=== PATIENT | female | born 2000 | race African-American/Black ===

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

== ENCOUNTER 2022-09-13 06:00 | Emergency (ER) | payer SELFPAY ==
[2022-09-13 06:22] VITALS: BMI 47.9
[2022-09-13] MEDS ORDERED: DEXAMETHASONE SOD PHOSPHATE 10 MG/1 ML VIAL IM ONE (08:02)
[2022-09-13] MEDS ORDERED: DEXAMETHASONE SOD PHOSPHATE 10 MG/1 ML VIAL IVPUSH ONE (08:11)
[2022-09-13] MEDS ORDERED: ACETAMINOPHEN 1000 MG/100 ML BAG IVPB ONE (08:11)
[2022-09-13] MEDS ORDERED: SODIUM CHLORIDE 0.9% 500 ML INFUS.BAG IV ONE (08:11)
[2022-09-13] MEDS ORDERED: DEXAMETHASONE SOD PHOSPHATE 10 MG/1 ML VIAL ONE (08:21)
[2022-09-13] MEDS ORDERED: ACETAMINOPHEN INJECTION 100 ML IVPB ONE (08:21)
[2022-09-13 09:15] LABS: BASO % 0.7 % (0-2.0); EOS % 3.2 % (0-4.5); HEMOGLOBIN 11.9 GM/dL (10.7-15.3); LYMPH % 31.2 % (8-40); MCH 23.5 pg (25.7-33.7); MCHC 31.3 g/dl (32.0-36.0); MEAN CELL VOLUME 75.1 fl (80-96); MEAN PLT VOLUME 8.1 fl (7.5-11.1); MONO % 6.3 % (3.8-10.2); NEUT % 58.6 % (42.8-82.8); PLATELET COUNT 481 10^3/uL (134-434); RBC 5.05 M/mm3 (3.60-5.2); RDW 16.3 % (11.6-15.6); WHITE BLOOD COUNT 9.3 K/mm3 (4.0-10.0)
[2022-09-13 09:42] LABS: ALBUMIN 3.8 g/dl (3.4-5.0); BLOOD UREA NITROGEN 11.2 mg/dL (7-18); CALCIUM 9.3 mg/dL (8.5-10.1)
[2022-09-13 09:45] LABS: CREATININE 0.7 mg/dL (0.55-1.3)
[2022-09-13 09:47] LABS: BILIRUBIN,TOTAL 0.5 mg/dL (0.2-1)
[2022-09-13] MEDS ORDERED: MAG HYDROX/AL HYDROX/SIMETH -MYLANTA- ORAL SUSPENSION PO ONE (10:23)
[2022-09-13] MEDS ORDERED: MAG HYDROX/AL HYDROX/SIMETH 30 ML UNIT-DOSE CUP ONE (10:55)
[2022-09-13] MEDS ORDERED: AMOXICILLIN 500 MG CAPSULE (FP) PO ONE (11:50)
[2022-09-13] MEDS ORDERED: DOXYCYCLINE HYCLATE 100 MG CAPSULE PO ONE ×2 (11:50→12:06)
[2022-09-13] MEDS ORDERED: CEFTRIAXONE 1 GM in DEXTROSE 5%-WATER - 100 ML IVPB ONE (11:50)
[2022-09-13] MEDS ORDERED: AMOXICILLIN 500 MG CAPSULE (FP) ONE (12:07)
[2022-09-13] MEDS ORDERED: CEFTRIAXONE 1 GM/50 ML BAG ONE (12:07)
[2022-09-13] MEDS ORDERED: KETOROLAC TROMETHAMINE 15 MG/ML VIAL IVPUSH ONE (12:13)
[2022-09-13 13:11] VITALS: BP 150/95; PULSE 80; RESP 100; TEMP 98.9
== END 2022-09-13 13:10 | disposition home or self-care (01) ==
LOC: JER 06:00
PROC: 3E0333Z Introduction of Anti-inflammatory into Peripheral Vein, Percutaneous Approach (ICD-10-PCS; principal; 2022-09-13)
PROC: 3E03329 Introduction of Other Anti-infective into Peripheral Vein, Percutaneous Approach (ICD-10-PCS; 2022-09-13)
PROC: 3E0333Z Introduction of Anti-inflammatory into Peripheral Vein, Percutaneous Approach (ICD-10-PCS; 2022-09-13)
DX: J02.9 Acute pharyngitis, unspecified (principal)
CPT/HCPCS: 0241U-QW; 36415; 70491-TC; 80053; 84703; 85025; 87070; 87651; 99285-25; J1100

== ENCOUNTER 2023-05-20 14:37 | Emergency (ER) | payer OTHER ==
[2023-05-20 14:44] VITALS: BMI 50.2
[2023-05-20] MEDS ORDERED: KETOROLAC TROMETHAMINE 60 MG/2 ML VIAL ONE (18:06)
[2023-05-20] MEDS ORDERED: IBUPROFEN 600 MG TABLET (FP) PO ONE ×2 (18:11→18:16)
[2023-05-20] MEDS ORDERED: KETOROLAC TROMETHAMINE 30 MG/1 ML VIAL IM ONE (18:11)
[2023-05-20 18:49] VITALS: BP 153/111; PULSE 74; RESP 20; TEMP 98
== END 2023-05-20 19:47 | disposition home or self-care (01) ==
LOC: JERFT 14:37
DX: S83.92XA Sprain of unspecified site of left knee, initial encounter (principal); I10 Essential (primary) hypertension; W01.0XXA Fall on same level from slipping, tripping and stumbling without subsequent striking against object, initial encounter
CPT/HCPCS: 73130-TC-LT-FY; 73562-TC-LT-FY; 73610-TC-LT-FY; 73630-TC-LT; 99284-25

== ENCOUNTER 2023-08-14 22:17 | Emergency (ER) | payer OTHER ==
[2023-08-14 22:26] VITALS: BMI 49.9
[2023-08-14 23:18] LABS: BASO % 0.5 % (0-2.0); EOS % 0.8 % (0-4.5); HEMATOCRIT 33.4 % (32.4-45.2); HEMOGLOBIN 10.2 GM/dL (10.7-15.3); LYMPH % 27.6 % (8-40); MCHC 30.4 g/dl (32.0-36.0); MEAN CELL VOLUME 75.7 fl (80-96); MEAN PLT VOLUME 7.2 fl (7.5-11.1); MONO % 6.6 % (3.8-10.2); NEUT % 64.5 % (42.8-82.8); PLATELET COUNT 491 10^3/uL (134-434); RBC 4.41 M/mm3 (3.60-5.2); RDW 15.9 % (11.6-15.6); WHITE BLOOD COUNT 12.1 K/mm3 (4.0-10.0)
[2023-08-14 23:40] LABS: POTASSIUM 3.8 mmol/L (3.5-5.1)
[2023-08-14 23:42] LABS: ALBUMIN 3.6 g/dl (3.4-5.0); BLOOD UREA NITROGEN 9.1 mg/dL (7-18); CALCIUM 9.2 mg/dL (8.5-10.1); MAGNESIUM 2.3 mg/dL (1.8-2.4)
[2023-08-14 23:46] LABS: CREATININE 0.7 mg/dL (0.55-1.3)
[2023-08-14 23:47] LABS: BILIRUBIN,TOTAL 0.3 mg/dL (0.2-1); TOT PROT 7.2 g/dl (6.4-8.2)
[2023-08-14 23:55] VITALS: BP 124/88; PULSE 75; RESP 17; TEMP 98
== END 2023-08-15 00:18 | disposition home or self-care (01) ==
LOC: JER 22:17
DX: I10 Essential (primary) hypertension (principal); R00.2 Palpitations; R07.9 Chest pain, unspecified
CPT/HCPCS: 36415; 80053; 83735; 84484; 85025; 93005; 93010; 99284-25

== ENCOUNTER 2023-09-14 12:32 | Emergency (ER) | payer OTHER ==
[2023-09-14 12:38] VITALS: BP 141/85; PULSE 90; RESP 18; TEMP 97.5; BMI 48.7
[2023-09-14] MEDS ORDERED: ACETAMINOPHEN 500 MG TABLET (FP) ONE (12:57)
[2023-09-14] MEDS: ACETAMINOPHEN 500 MG TABLET (FP) PO ONE (12:59)
== END 2023-09-14 13:30 | disposition home or self-care (01) ==
LOC: JERFT 12:32
DX: R05.9 Cough, unspecified (principal); R09.81 Nasal congestion; R09.89 Other specified symptoms and signs involving the circulatory and respiratory systems; J39.2 Other diseases of pharynx; J06.9 Acute upper respiratory infection, unspecified; Z20.822 Contact with and (suspected) exposure to COVID-19
CPT/HCPCS: 0241U-QW; 99283-25

== ENCOUNTER 2024-06-01 19:14 | Emergency (ER) | payer OTHER ==
[2024-06-01 19:24] VITALS: BP 137/89; PULSE 79; RESP 18; TEMP 98.4; BMI 30.9
[2024-06-01 21:16] LABS: EOS % 1.1 % (0-4.5); HEMATOCRIT 37.2 % (32.4-45.2); HEMOGLOBIN 11.6 GM/dL (10.7-15.3); LYMPH % 31.2 % (8-40); MCH 23.5 pg (25.7-33.7); MCHC 31.2 g/dl (32.0-36.0); MEAN CELL VOLUME 75.6 fl (80-96); MEAN PLT VOLUME 7.4 fl (7.5-11.1); MONO % 6.8 % (3.8-10.2); NEUT % 59.9 % (42.8-82.8); PLATELET COUNT 447 10^3/uL (134-434); RBC 4.93 M/mm3 (3.60-5.2); RDW 16.6 % (11.6-15.6); WHITE BLOOD COUNT 10.3 K/mm3 (4.0-10.0)
[2024-06-01] MEDS ORDERED: ACETAMINOPHEN 500 MG TABLET (FP) ONE (21:25)
[2024-06-01] MEDS: ACETAMINOPHEN 500 MG TABLET (FP) PO ONE (21:27)
[2024-06-01 21:44] LABS: ALBUMIN 4.1 g/dl (3.4-5.0); BILIRUBIN,TOTAL 0.3 mg/dL (0.2-1); BLOOD UREA NITROGEN 11.8 mg/dL (7-18); CALCIUM 9.2 mg/dL (8.5-10.1); CREATININE 0.9 mg/dL (0.55-1.3); POTASSIUM 4.3 mmol/L (3.5-5.1)
[2024-06-01 22:24] LABS: HIV INTERPRETATION NEGATIVE (NEGATIVE)
[2024-06-01] MEDS ORDERED: IBUPROFEN 600 MG TABLET (FP) PO ONE (22:46)
[2024-06-01] MEDS: IBUPROFEN 600 MG TABLET (FP) PO ONE (22:58)
== END 2024-06-01 22:58 | disposition home or self-care (01) ==
LOC: JERFT 19:14
DX: R07.89 Other chest pain (principal)
CPT/HCPCS: 36415; 71046-TC-FY; 80053; 84484; 84703; 85025; 86803; 87389; 93005; 93010; 99285-25